=== PATIENT | female | born 1985 | race Caucasian/White ===

== ENCOUNTER 2022-12-01 11:06 | Emergency (ER) | payer SELFPAY ==
--- NOTE | ~2022-12-01 | US_ITS ---
EXAMINATION: US RETROPERITONEAL LIMITED (RENAL ONLY) CLINICAL INFORMATION: Right-sided pyelonephritis, rule out obstruction. COMPARISON: Renal ultrasound dated 12/24/2018. TECHNIQUE: Multiple 2-D grayscale and color Doppler ultrasound images of the kidneys were obtained. FINDINGS: RIGHT KIDNEY: 11.3 x 4.7 x 5.0 cm (SAG x AP x TRV). The kidney is normal in size, contour, and echogenicity. Renal cortical thickness is normal. No calculi or focal parenchymal lesions. No hydronephrosis. LEFT KIDNEY: 10.9 x 5.3 x 4.4 cm (SAG x AP x TRV). The kidney is normal in size, contour, and echogenicity. Renal cortical thickness is normal. No calculi or focal parenchymal lesions. No hydronephrosis. OTHER: Limited visualization of the gallbladder shows possible small calculi versus polyps measuring up to 0.4 cm. No mural thickening or pericholecystic fluid. Color Doppler showed no associated vascular flow. US/US renal BI IMPRESSION: 1. No significant renal abnormality. No hydronephrosis. 2. Limited visualization of the gallbladder shows possible small calculi versus polyps measuring up to 0.4 cm without evidence for acute cholecystitis. Dedicated nonemergent right upper quadrant ultrasound is recommended.
--- NOTE | 2022-12-01 11:09 | ED_ITS ---
HPI - General Adult General Chief complaint: Abdominal Pain <Azeem Kulkarni - Last Filed: 12/01/22 11:16> Stated complaint: R side back pain <Azeem Kulkarni - Last Filed: 12/01/22 11:16> Time Seen by Provider: 12/01/22 16:47 <Azeem Kulkarni - Last Filed: 12/01/22 11:16> Source: patient <Lissette Valencia MD - Last Filed: 12/01/22 17:33> Mode of arrival: ambulatory <Lissette Valencia MD - Last Filed: 12/01/22 17:33> Limitations: no limitations <Lissette Valencia MD - Last Filed: 12/01/22 17:33> History of Present Illness HPI narrative: 37-year-old female came evaluation right pain. Started about 3-4 days ago pain localized to right flank area pain is sharp and constant severe 10/10 localized to the right flank area with no radiation, pain is associated with nausea and vomiting, no front abdominal pain, patient decline history dysuria or frequency urination just finished her menstruation. No sick contacts, no recent travel, no fever or chills. Patient had similar symptoms when she had a kidney infection in the past current <Lissette Valencia MD - Last Filed: 12/01/22 17:33> Related Data Allergies/adverse reactions: Allergies Allergy/AdvReac Type Severity Reaction Status Date / Time lactose [LACTOSE] Allergy Unknown BELLY PAIN Unverified 12/01/22 11:11 peanut [PEANUT] Allergy Unknown ITCHY Unverified 12/01/22 11:11 <Azeem Kulkarni - Last Filed: 12/01/22 11:16> Review of Systems Review of Systems: All other systems are reviewed and are negative Constitutional: Reports as per HPI and Reports no additional constitutional complaints Eyes: Reports as per HPI and Reports no additional eye complaints Reports system reviewed and no additional complaints, except as documented Cardiovascular: Reports as per HPI and Reports no additional cardiovascular complaints Respiratory: Reports as per HPI and Reports no additional respiratory complaints Gastrointestinal: Reports as per HPI and Reports no additional gastrointestinal complaints Genitourinary: Reports no additional female genitourinary complaints Musculoskeletal: Reports no additional musculoskeletal complaints Skin/Breast: Reports system reviewed and no additional complaints, except as docu Psychiatric: Reports no additional psychiatric complaints Endocrine: Reports no additional endocrine complaints Hematologic/Lymphatic: Reports no additional hematologic/lymphatic complaints Allergic/Immunologic: Reports no additional allergic/immunologic complaints Reports system reviewed and no additional complaints, except as documented and Reports Abnormal speech present <Lissette Valencia MD - Last Filed: 12/01/22 17:33> [facility] Social History Social History: Social History Advance Directives: No Advance Directives Information Provided: No <Azeem Kulkarni - Last Filed: 12/01/22 11:16> Physical Exam ED Vital Signs: Vital Signs - 24 hr 12/01/22 11:11 Temperature 97.9 F Pulse Rate 129 H Respiratory Rate 16 Blood Pressure 100/68 Pulse Oximetry 97 Oxygen Delivery Method Room Air BMI result Body Mass Index 23.0 <Azeem Kulkarni - Last Filed: 12/01/22 11:16> Vital Signs - 24 hr 12/01/22 11:11 Temperature 97.9 F Pulse Rate 129 H Respiratory Rate 16 Blood Pressure 100/68 Pulse Oximetry 97 Oxygen Delivery Method Room Air BMI result Body Mass Index 23.0 Vital signs have been reviewed as appeared to be correct. Blood pressure normal. Heart rate elevated. Respiration rate normal. Temperature normal. Oxygen saturation normal. <Lissette Valencia MD - Last Filed: 12/01/22 17:33> Appearance: Alert. Oriented X3. No acute distress. Head: Normal external exam. Normocephalic. Atraumatic. No Moore signs noted. No raccoon eyes noted Eyes: PERRLA. EOMI. Conjunctiva and sclera normal. Eyelids normal. ENT: TM's Normal. Pharynx normal. Uvula midline. Moist mucous membranes. No trismus noted. No drooling noted. No muffled voice noted. Neck: Normal inspection. Neck supple. FROM. No adenopathy. Thyroid Normal. No meningeal signs. No neck mass noted. CVS: Normal heart rate and rhythm. Heart sound normal. No murmurs noted. Pulses normal throughout. Respiratory: No respiratory distress. Painless inspiration. Breath sounds normal. No wheezes/rales/rhonchi noted. Chest nontender. No accessory muscle usage noted or decreased air movement noted. Abdomen: Soft and nontender. Bowel sounds normal in all 4 quadrants. No distention noted. No organomegaly noted. No visible injury noted. Back: Right CVA tenderness. Full range of motion noted. Skin: Skin warm and dry. Normal skin color. Normal skin turgor. No rashes/lesions/lacerations noted. Extremities: No lower extremity edema. Extremities exhibit normal range of motion. Extremities nontender. Neuro: Oriented X 3. Cranial nerve exam: II-XII are grossly intact No motor deficit. No sensory deficit. Reflexes normal. <Lissette Valencia MD - Last Filed: 12/01/22 17:33> Course Course Course Narrative: RME- 37-year-old female presents for evaluation of right flank pain that started 4 days ago. She reports associated nausea and vomiting. Patient tachycardic to 130 in triage. Labs and urine ordered. <Azeem Kulkarni - Last Filed: 12/01/22 11:16> Reevaluation(s) Reevaluation #1: Right pyelonephritis patient feels better after the 1st dose of ceftriaxone given in ED will discharge the patient on cefuroxime and drink plenty of fluids. Patient was instructed to return if worsening of the pain or fever or chills. <Lissette Valencia MD - Last Filed: 12/01/22 17:33> Time: 17:30 <Lissette Valencia MD - Last Filed: 12/01/22 17:33> Medical Decision Making Differential Diagnosis Differential Diagnoses: The differential diagnosis associated with the presentation includes (UTI, pyelonephritis, myofascial pain syndrome, obstructive uropathy, electrolyte disturbance, dehydration, acute renal failure, severe anemia, sepsis.) <Lissette Valencia MD - Last Filed: 12/01/22 17:33> Lab Data MDM Lab Attestation statement: I reviewed the patient's lab results. <Lissette Valencia MD - Last Filed: 11/10 12/01 17:33> Result Diagrams: 12/01/22 11:20 12/01/22 11:20 <Azeem Kulkarni - Last Filed: 12/01/22 11:16> Labs: Lab Results 12/01/22 12/01/22 12/01/22 Range/Units 11:20 11:20 11:20 WBC 18.1 H (4.8-10.8) X10*3/uL RBC 4.07 L (4.20-5.50) X10*6/uL Hgb 12.7 (12.0-16.0) g/dl Hct 37.1 (37.0-47.0) % MCV 91.2 (80.0-98.0) fL MCH 31.2 (27.0-33.0) pg MCHC 34.2 (31.0-35.0) g/dl RDW 13.3 (11.0-16.0) % Plt Count 234 (160-400) X10*3/uL MPV 8.3 L (9.4-12.3) fL Immature Gran % (Auto) 0.6 H (0.0-0.4) % Neut % (Auto) 84.4 H (45-73) % Lymph % (Auto) 5.2 L (20-40) % [place] % (Auto) 9.7 (2-11) % Eos % (Auto) 0.0 (0-4) % Baso % (Auto) 0.1 (0-2) % Lymph # (Auto) 0.9 L (1.2-4.9) X10*3/uL [place] # (Auto) 1.8 H (0.1-1.2) X10*3/uL Eos # (Auto) 0.0 (0.0-0.4) X10*3/uL Baso # (Auto) 0.0 (0.0-0.2) X10*3/uL Abs Immat Gran (auto) 0.11 H (0.00-0.03) X10*3/uL Absolute Neuts (auto) 15.3 H (2.0-8.3) x10*3/uL Absolute Nucleated RBC 0.000 (0.0-0.012) X10*3/uL Nucleated RBC % (auto) 0.0 (0.0-0.2) /100WBC Smear Tech's Comments VERIFIED Sodium 135 (135-145) mmol/L Potassium 3.5 (3.3-5.1) mmol/L Chloride 98 (96-108) mmol/L Carbon Dioxide 23 (22-29) mmol/L Anion Gap 18 (12-20) BUN 9 (9-16) mg/dL Creatinine 0.99 (0.5-1.4) mg/dL Estim Creat Clear Calc 59.8 Estimated GFR > 60 Random Glucose 106 (60-115) mg/dL Lactic Acid (0.5-2.0) mmol/L Calcium 9.0 (8.4-10.2) mg/dL Total Bilirubin 0.8 (0.0-1.0) mg/dL AST 19 (5-31) U/L ALT 10 (0-31) U/L Alkaline Phosphatase 89 (39-117) U/L Total Protein 7.0 (6.5-8.0) g/dL Albumin 4.0 (3.5-5.0) g/dL Lipase 10 (8-78) U/L Urine Color Dark Yellow Urine Appearance Cloudy Urine pH 5.5 (5.0-9.0) Ur Specific [place] 1.015 (1.005-1.025) Urine Protein 100 (2+) H (Neg-Trace) mg/dL Urine Glucose (UA) Negative (Negative) mg/dL Urine Ketones 80 (Negative) mg/dL Urine Blood Small (1+) H (Negative) Urine Nitrite Negative (Negative) Ur Leukocyte Esterase Moderate (2+) H (Negative) Urine RBC 11-20 H (0-2) /HPF Urine WBC >50 H (0-5) /HPF Ur Squamous Epith Cells 11-20 (0-2) /HPF Urine Bacteria Trace (None Seen) Hyaline Casts 3-5 (0-2) /LPF Urine Test (NEGATIVE) 12/01/22 12/01/22 Range/Units 11:20 17:02 WBC (4.8-10.8) X10*3/uL RBC (4.20-5.50) X10*6/uL Hgb (12.0-16.0) g/dl Hct (37.0-47.0) % MCV (80.0-98.0) fL MCH (27.0-33.0) pg MCHC (31.0-35.0) g/dl RDW (11.0-16.0) % Plt Count (160-400) X10*3/uL MPV (9.4-12.3) fL Immature Gran % (Auto) (0.0-0.4) % Neut % (Auto) (45-73) % Lymph % (Auto) (20-40) % [place] % (Auto) (2-11) % Eos % (Auto) (0-4) % Baso % (Auto) (0-2) % Lymph # (Auto) (1.2-4.9) X10*3/uL [place] # (Auto) (0.1-1.2) X10*3/uL Eos # (Auto) (0.0-0.4) X10*3/uL Baso # (Auto) (0.0-0.2) X10*3/uL Abs Immat Gran (auto) (0.00-0.03) X10*3/uL Absolute Neuts (auto) (2.0-8.3) x10*3/uL Absolute Nucleated RBC (0.0-0.012) X10*3/uL Nucleated RBC % (auto) (0.0-0.2) /100WBC Smear Tech's Comments Sodium (135-145) mmol/L Potassium (3.3-5.1) mmol/L Chloride (96-108) mmol/L Carbon Dioxide (22-29) mmol/L Anion Gap (12-20) BUN (9-16) mg/dL Creatinine (0.5-1.4) mg/dL Estim Creat Clear Calc Estimated GFR Random Glucose (60-115) mg/dL Lactic Acid 0.9 (0.5-2.0) mmol/L Calcium (8.4-10.2) mg/dL Total Bilirubin (0.0-1.0) mg/dL AST (5-31) U/L ALT (0-31) U/L Alkaline Phosphatase (39-117) U/L Total Protein (6.5-8.0) g/dL Albumin (3.5-5.0) g/dL Lipase (8-78) U/L Urine Color Urine Appearance Urine pH (5.0-9.0) Ur Specific [place] (1.005-1.025) Urine Protein (Neg-Trace) mg/dL Urine Glucose (UA) (Negative) mg/dL Urine Ketones (Negative) mg/dL Urine Blood (Negative) Urine Nitrite (Negative) Ur Leukocyte Esterase (Negative) Urine RBC (0-2) /HPF Urine WBC (0-5) /HPF Ur Squamous Epith Cells (0-2) /HPF Urine Bacteria (None Seen) Hyaline Casts (0-2) /LPF Urine Test NEGATIVE (NEGATIVE) <Azeem Kulkarni - Last Filed: 12/01/22 11:16> Lab Results 12/01/22 12/01/22 12/01/22 Range/Units 11:20 11:20 11:20 WBC 18.1 H (4.8-10.8) X10*3/uL RBC 4.07 L (4.20-5.50) X10*6/uL Hgb 12.7 (12.0-16.0) g/dl Hct 37.1 (37.0-47.0) % MCV 91.2 (80.0-98.0) fL MCH 31.2 (27.0-33.0) pg MCHC 34.2 (31.0-35.0) g/dl RDW 13.3 (11.0-16.0) % Plt Count 234 (160-400) X10*3/uL MPV 8.3 L (9.4-12.3) fL Immature Gran % (Auto) 0.6 H (0.0-0.4) % Neut % (Auto) 84.4 H (45-73) % Lymph % (Auto) 5.2 L (20-40) % [place] % (Auto) 9.7 (2-11) % Eos % (Auto) 0.0 (0-4) % Baso % (Auto) 0.1 (0-2) % Lymph # (Auto) 0.9 L (1.2-4.9) X10*3/uL [place] # (Auto) 1.8 H (0.1-1.2) X10*3/uL Eos # (Auto) 0.0 (0.0-0.4) X10*3/uL Baso # (Auto) 0.0 (0.0-0.2) X10*3/uL Abs Immat Gran (auto) 0.11 H (0.00-0.03) X10*3/uL Absolute Neuts (auto) 15.3 H (2.0-8.3) x10*3/uL Absolute Nucleated RBC 0.000 (0.0-0.012) X10*3/uL Nucleated RBC % (auto) 0.0 (0.0-0.2) /100WBC Smear Tech's Comments VERIFIED Sodium 135 (135-145) mmol/L Potassium 3.5 (3.3-5.1) mmol/L Chloride 98 (96-108) mmol/L Carbon Dioxide 23 (22-29) mmol/L Anion Gap 18 (12-20) BUN 9 (9-16) mg/dL Creatinine 0.99 (0.5-1.4) mg/dL Estim Creat Clear Calc 59.8 Estimated GFR > 60 Random Glucose 106 (60-115) mg/dL Lactic Acid (0.5-2.0) mmol/L Calcium 9.0 (8.4-10.2) mg/dL Total Bilirubin 0.8 (0.0-1.0) mg/dL AST 19 (5-31) U/L ALT 10 (0-31) U/L Alkaline Phosphatase 89 (39-117) U/L Total Protein 7.0 (6.5-8.0) g/dL Albumin 4.0 (3.5-5.0) g/dL Lipase 10 (8-78) U/L Urine Color Dark Yellow Urine Appearance Cloudy Urine pH 5.5 (5.0-9.0) Ur Specific [place] 1.015 (1.005-1.025) Urine Protein 100 (2+) H (Neg-Trace) mg/dL Urine Glucose (UA) Negative (Negative) mg/dL Urine Ketones 80 (Negative) mg/dL Urine Blood Small (1+) H (Negative) Urine Nitrite Negative (Negative) Ur Leukocyte Esterase Moderate (2+) H (Negative) Urine RBC 11-20 H (0-2) /HPF Urine WBC >50 H (0-5) /HPF Ur Squamous Epith Cells 11-20 (0-2) /HPF Urine Bacteria Trace (None Seen) Hyaline Casts 3-5 (0-2) /LPF Urine Test (NEGATIVE) 12/01/22 12/01/22 Range/Units 11:20 17:02 WBC (4.8-10.8) X10*3/uL RBC (4.20-5.50) X10*6/uL Hgb (12.0-16.0) g/dl Hct (37.0-47.0) % MCV (80.0-98.0) fL MCH (27.0-33.0) pg MCHC (31.0-35.0) g/dl RDW (11.0-16.0) % Plt Count (160-400) X10*3/uL MPV (9.4-12.3) fL Immature Gran % (Auto) (0.0-0.4) % Neut % (Auto) (45-73) % Lymph % (Auto) (20-40) % [place] % (Auto) (2-11) % Eos % (Auto) (0-4) % Baso % (Auto) (0-2) % Lymph # (Auto) (1.2-4.9) X10*3/uL [place] # (Auto) (0.1-1.2) X10*3/uL Eos # (Auto) (0.0-0.4) X10*3/uL Baso # (Auto) (0.0-0.2) X10*3/uL Abs Immat Gran (auto) (0.00-0.03) X10*3/uL Absolute Neuts (auto) (2.0-8.3) x10*3/uL Absolute Nucleated RBC (0.0-0.012) X10*3/uL Nucleated RBC % (auto) (0.0-0.2) /100WBC Smear Tech's Comments Sodium (135-145) mmol/L Potassium (3.3-5.1) mmol/L Chloride (96-108) mmol/L Carbon Dioxide (22-29) mmol/L Anion Gap (12-20) BUN (9-16) mg/dL Creatinine (0.5-1.4) mg/dL Estim Creat Clear Calc Estimated GFR Random Glucose (60-115) mg/dL Lactic Acid 0.9 (0.5-2.0) mmol/L Calcium (8.4-10.2) mg/dL Total Bilirubin (0.0-1.0) mg/dL AST (5-31) U/L ALT (0-31) U/L Alkaline Phosphatase (39-117) U/L Total Protein (6.5-8.0) g/dL Albumin (3.5-5.0) g/dL Lipase (8-78) U/L Urine Color Urine Appearance Urine pH (5.0-9.0) Ur Specific [place] (1.005-1.025) Urine Protein (Neg-Trace) mg/dL Urine Glucose (UA) (Negative) mg/dL Urine Ketones (Negative) mg/dL Urine Blood (Negative) Urine Nitrite (Negative) Ur Leukocyte Esterase (Negative) Urine RBC (0-2) /HPF Urine WBC (0-5) /HPF Ur Squamous Epith Cells (0-2) /HPF Urine Bacteria (None Seen) Hyaline Casts (0-2) /LPF Urine Test NEGATIVE (NEGATIVE) <Lissette Valencia MD - Last Filed: 12/01/22 17:33> Independent Interpretation I performed an independent interpretation of an: Ultrasound <Lissette Valencia MD - Last Filed: 12/01/22 17:33> Interpretation: Renal: Right hydronephrosis with no obstructive stone. <Lissette Valencia MD - Last Filed: 12/01/22 17:33> Radiology Impression Discussion of test interpretation with radiology: I have reviewed the radiologist's reading. <Lissette Valencia MD - Last Filed: 12/01/22 17:33> Discharge Plan Discharge Clinical Impression: Pyelonephritis <Azeem Kulkarni - Last Filed: 12/01/22 11:16> Patient Disposition: Home, Self-Care <Azeem Kulkarni - Last Filed: 12/01/22 11:16> Instructions: Kidney Infection (ED) <Azeem Kulkarni - Last Filed: 12/01/22 11:16> Additional Instructions: Drink plenty of fluids <Azeem Kulkarni - Last Filed: 12/01/22 11:16> Stand Alone Forms: Work/School Release <Azeem Kulkarni - Last Filed: 12/01/22 11:16>
[2022-12-01 11:11] VITALS: BP 100/68; PULSE 129; RESP 16; TEMP 36.6; O2SAT 97; BMI 23.0
[2022-12-01 11:30] LABS: Basophils Percent Auto 0.1 % (0-2); Hematocrit 37.1 % (37.0-47.0); Hemoglobin 12.7 g/dl (12.0-16.0); Imm Gran Abs Auto 0.11 X10*3/uL (0.00-0.03); Imm Gran Pct Auto 0.6 % (0.0-0.4); Lymphocytes Absolute Auto 0.9 X10*3/uL (1.2-4.9); Lymphocytes Percent Auto 5.2 % (20-40); MANUAL DIFF FLAG SCAN; Mean Corpuscular HGB Conc 34.2 g/dl (31.0-35.0); Mean Corpuscular Hemoglobin 31.2 pg (27.0-33.0); Mean Corpuscular Volume 91.2 fL (80.0-98.0); Mean Platelet Volume 8.3 fL (9.4-12.3); Monocytes Absolute Auto 1.8 X10*3/uL (0.1-1.2); Monocytes Percent Auto 9.7 % (2-11); Neutrophils Absolute Auto 15.3 x10*3/uL (2.0-8.3); Neutrophils Percent Auto 84.4 % (45-73); Platelet Count 234 X10*3/uL (160-400); Red Blood Count 4.07 X10*6/uL (4.20-5.50); Red Cell Distribution Width 13.3 % (11.0-16.0); SCAN SMEAR FLAG 1; White Blood Count 18.1 X10*3/uL (4.8-10.8)
[2022-12-01 11:39] LABS: Appearance Urine Cloudy; Color Urine Dark Yellow; Glucose Urine UA Negative (Negative); Leukocyte Esterase Urine Moderate (2+) (Negative); Nitrite Urine Negative (Negative); PH 5.5 (5.0-9.0); Specific Gravity - Urine 1.015 (1.005-1.025); UMIC TRIGGER UACC YES; Urine Blood Small (1+) (Negative); Urine Ketones 80 mg/dL (Negative); Urine Protein 100 (2+) mg/dL (Neg-Trace)
[2022-12-01 11:47] LABS: Alanine Aminotransferase 10 U/L (0-31); Alkaline Phosphatase 89 U/L (39-117); Anion Gap 18 (12-20); Aspartate Amino Transferase 19 U/L (5-31); Bilirubin Total 0.8 mg/dL (0.0-1.0); Blood Urea Nitrogen 9 mg/dL (9-16); Carbon Dioxide 23 mmol/L (22-29); Chloride 98 mmol/L (96-108); Creatinine Clr Calc Pharmacy 59.8; Estimated Glomerular Filt Rate > 60; Glucose Random 106 mg/dL (60-115); Potassium 3.5 mmol/L (3.3-5.1); Sodium 135 mmol/L (135-145)
[2022-12-01 11:51] LABS: SLIDE REVIEW VERIFIED
[2022-12-01 11:56] LABS: Bacteria Urine Trace (None Seen); UACC Culture Trigger YES; WBC Urine >50 /HPF (0-5)
[2022-12-01 12:07] LABS: Lipase 10 U/L (8-78)
[2022-12-01 17:07] LABS: UPreg QC Valid YES; Urine Pregnancy NEGATIVE (NEGATIVE)
[2022-12-01 17:24] LABS: Lactic Acid 0.9 mmol/L (0.5-2.0)
[2022-12-01] MEDS: cefTRIAXone sodium 1 GM in 0.9 % Sodium Chloride 50 ML IV (17:36)
[2022-12-01 17:38] VITALS: BP 102/68; PULSE 118; TEMP 38.1; O2SAT 99
[2022-12-01 19:00] VITALS: BP 100/61; PULSE 111; RESP 18; TEMP 36.9; O2SAT 100
[2022-12-01 19:01] VITALS: BP 92/59; PULSE 96; RESP 16; O2SAT 99
== END 2022-12-01 19:09 | disposition home or self-care (01) ==
PROVIDERS: Physician Assistant; Emergency Provider Emergency Medicine
DX: N12 Tubulo-interstitial nephritis, not specified as acute or chronic (principal); R10.9 Unspecified abdominal pain
CPT/HCPCS: 36415; 76775; 80053; 81001; 81025; 83605; 83690; 85025; 87040; 87086; 87088; 87186; 96365; 99284; J0696